=== PATIENT | female | born 1970 | race Caucasian/White ===

== ENCOUNTER 2020-05-21 19:46 | Emergency (ER) | payer OTHER ==
[~2020-05-21] VITALS: Ht 157.5 cm; Wt 90.7 kg
[~2020-05-21 19:46] MED LIST: LOSARTAN POTASS50 MG
== END 2020-05-21 21:40 | disposition home or self-care (01) ==
LOC: ER 19:46
DX: K21.9 Gastro-esophageal reflux disease without esophagitis (principal); R10.13 Epigastric pain